=== PATIENT | male | born 1940 | race Caucasian/White ===

== ENCOUNTER 2016-11-05 11:36 | Emergency (ER) | payer MEDICARE, OTHER ==
[~2016-11-05] VITALS: Ht 185.4 cm; Wt 94.1 kg
[2016-11-05 11:39] VITALS: TEMP 99.2
[2016-11-05 13:02] LABS: BASO # 0.1 (0.0-0.2); BASO % 0.6 % (0.0-2.0); EOS # 0.1 (0.0-0.7); EOS % 0.8 % (0-4.0); GRAN # 8.2 (1.4-6.5); GRAN % 72.3 % (42.2-75.2); HEMATOCRIT 38.9 % (42.0-52.0); HEMOGLOBIN 13.5 g/dl (13.5-18.0); LYMPH # 1.4 (1.2-3.4); LYMPH % 12.8 % (20.0-51.0); MEAN CELL VOLUME 98 fl (80.0-100.0); MEAN CORPUSCULAR HEMOGLOBIN 34 pg (27.0-31.0); MEAN CORPUSCULAR HGB CONC 35 g/dl (33.0-37.0); MEAN PLATELET VOLUME 10.1 fl (7.4-10.4); MONO # 1.5 (0.1-0.6); MONO % 13.1 % (1.7-9.3); PLATELET COUNT 222 K/mm3 (130-400); RED BLOOD COUNT 3.98 M/mm3 (4.20-5.60); REDCELL DISTRIBUTION WIDTH-CV 11.9 % (11.5-14.5); WHITE BLOOD COUNT 11.3 K/mm3 (4.8-10.8)
[2016-11-05] MEDS ORDERED: NORMODYNE100 MG PO (13:12)
[2016-11-05] MEDS ORDERED: NORVASC 5MG5 MG/TAB PO (13:12)
[2016-11-05] MEDS ORDERED: KEPPRA 500MG500 MG PO (13:13)
[2016-11-05] MEDS ORDERED: PRINZIDE 12.5 M1 TA1 PO (13:14)
[2016-11-05] MEDS ORDERED: ZOCOR 10MG10 MG PO (13:14)
[2016-11-05] MEDS ORDERED: PAMELOR 10MG10 MG PO (13:14)
[2016-11-05] MEDS ORDERED: PRILOSEC 20MG20 MG PO (13:16)
[2016-11-05 13:42] LABS: PH 7 (5-8); SQUAMOUS EPITHELIAL None Seen /hpf; URINE APPEARANCE Clear; URINE BACTERIA None Seen /hpf; URINE BILIRUBIN Negative (NEGATIVE); URINE BLOOD Negative (NEGATIVE); URINE COLOR Yellow; URINE GLUCOSE Negative (NEGATIVE); URINE KETONE Negative (NEGATIVE); URINE RBC 0-2 /hpf; URINE UROBILINOGEN >=4.0 mg/dL (NEGATIVE); URINE WBC 0-2 /hpf
[2016-11-05 13:48] LABS: ADJUSTED CALCIUM 9.7 mg/dL (8.4-10.2); ALBUMIN 4.4 gm/dL (3.5-5.0); BILIRUBIN,TOTAL 1.6 mg/dL (0.0-1.0); CREATININE, serum 0.89 mg/dL (0.66-1.25); POTASSIUM 4.4 mmol/L (3.4-5.0); TOTAL PROTEIN 8.1 gm/dL (6.4-8.2)
[2016-11-05] MEDS ORDERED: NORCO 325 MG-51 TAB PO (13:48)
[2016-11-05 14:48] VITALS: BP 173/97; PULSE 62
== END 2016-11-05 14:52 | disposition home or self-care (01) ==
LOC: COL.ER 11:36
PROVIDERS: Emergency Medicine
DX: S06.6X0A Traumatic subarachnoid hemorrhage without loss of consciousness, initial encounter (principal); I10 Essential (primary) hypertension; G20 Parkinson's disease; E78.00 Pure hypercholesterolemia, unspecified; V86.39XA Unspecified occupant of other special all-terrain or other off-road motor vehicle injured in traffic accident, initial encounter

== ENCOUNTER 2019-11-02 09:39 | Day surgery (SDC) | payer MEDICARE, OTHER ==
[2019-11-02] VITALS (10 sets, daily range): BP systolic 129–153; BP diastolic 49–65; PULSE 40–52; TEMP 97–98
[~2019-11-02] VITALS: Ht 185.4 cm; Wt 92.7 kg
[~2019-11-02 09:39] MED LIST: FLONASE NASAL S16 GM NS; KEPPRA 500MG500 MG PO; NORCO 325 MG-51 TAB PO; NORMODYNE100 MG PO; NORVASC 5MG5 MG/TAB PO; PAMELOR 10MG10 MG PO; PRILOSEC 20MG20 MG PO; PRINZIDE 12.5 M1 TA1 PO; ZOCOR 10MG10 MG PO
[2019-11-02] MEDS ORDERED: ZYLOPRIM 100MG100 MG PO (10:45)
--- NOTE | 2019-11-02 16:00 | NUR ---
PATIENT ADMITED INTO ROOM 326 POST OP TURP. PHELPS TO DD WITH CLEAR YELLOW URINE AND CBI INFUSING AT MOD RATE. NO C/O PAIN OR NAUSEA. IV FLUIDS INFUSING INTO LEFT FORARM IV. LIQUIDS AT BEDSIDE. PATIENT UNABLE TO MOVE BLE. NOTED HR IN 40'S, PRE-OP HR WAS 47. ALL OTHER VSS. HEAD TO TOE ASSESSMENT WNL. DAUGHTER AT BEDSIDE. ORIENTED TO ROOM. CALL LIGHT IN REACH.
--- NOTE | 2019-11-02 18:35 | NUR ---
PATIENT'S PHELPS CATH HAS A CLOT STUCK IN THE DRAIN SPOUT. UNABLE TO GET CLOT OUT AND EMPTY PHELPS. REPLACED PHELPS BAG WITH NEW 4000 ML BAG. URINE IS PINK WITH SOME CLOTS NOTED. CBI INFUSING AT MOD RATE. WILL MONITOR
--- NOTE | 2019-11-02 21:00 | NUR ---
PT IN BED, REPORTS HIS FEET ARE FINALLY "AWAKE". IS ALERT AND ORIENTED X4, [place]. HAS SL TO LEFT FOREARM WITHOUT REDNESS OR SWELLING. PHELPS CATHETER WITH CBI AT MODERATE RATE, SHOWS PEACH COLORED URINE. TAKES HS MEDS WITHOUT PROBLEM.
[2019-11-03 04:00] VITALS: BP 133/66; PULSE 50; TEMP 97.9
--- NOTE | 2019-11-03 06:00 | NUR ---
PT URINE REMAINS PINK, CBI SLOW. TAKING FLUIDS WELL.
--- NOTE | 2019-11-03 08:00 | NUR ---
Patient resting in bed at this time,is alert, oriented, and answers questions appropriately when he can hear you. Patient states that he normally wears hearing aids, but didn't bring them for this stay as he was afraid he would lose them. CBI in place, running at a slow rate, urine is light pink and clear. Patient denies pain or needs, call light within reach.
[2019-11-03 08:03] VITALS: BP 137/56; PULSE 53; TEMP 97.6
--- NOTE | 2019-11-03 09:45 | NUR ---
CBI clamped, bladder primed, and catheter pulled per [facility]. Patient tolerated procedure well, 20ml of water removed from balloon, catheter tip intact upon removal. Patient was able to immediately void 150 ml of light pink urine. Instructed to call when he voids, patient verbalizes understanding.
--- NOTE | 2019-11-03 10:44 | NUR ---
Initial visit; Patient thanked [employer] for looking in on him and offering prayer and God's blessings.
[2019-11-03 12:17] VITALS: BP 134/65; PULSE 58; TEMP 98.7
--- NOTE | 2019-11-03 14:40 | NUR ---
Recieved call back from patient's daughter. Informed her that we were discharging her father and reviewed his discharge packet with her over the phone. Discussed discharge medications, discharge appointments, and discharge restrictions. Questions were asked and answered.
--- NOTE | 2019-11-03 15:22 | NUR ---
Patient's daughter arrived to pick him up. INT removed, catheter intact, hemostasis achieved. Patient escorted to ED entrance via wheelchair where he entered a private vehicle.
== END 2019-11-03 15:38 | disposition home or self-care (01) ==
LOC: SDCO 09:39 → SURG 09:39 → SDCO 12:00 → SURG 16:00 → SDCO 11-03 15:38
DX: N40.1 Benign prostatic hyperplasia with lower urinary tract symptoms (principal); C61 Malignant neoplasm of prostate; R39.12 Poor urinary stream; R35.1 Nocturia; E78.00 Pure hypercholesterolemia, unspecified; M10.9 Gout, unspecified; I10 Essential (primary) hypertension; E78.5 Hyperlipidemia, unspecified; G20 Parkinson's disease; G70.9 Myoneural disorder, unspecified; G47.33 Obstructive sleep apnea (adult) (pediatric); Z90.49 Acquired absence of other specified parts of digestive tract; Z20.828 Contact with and (suspected) exposure to other viral communicable diseases; Z79.899 Other long term (current) drug therapy
CPT/HCPCS: OP; C1769; J2250; J2704; J3010; J7120; Q9967